=== PATIENT | male | born 1945 | race Caucasian/White ===

== ENCOUNTER → 2023-07-04 06:59 | Outpatient (REF) | payer BC, SELFPAY | LOC: MRI 06:59 | PROVIDERS: ATTENDING PHYSICIAN Psychiatry & Neurology Neurology; FAMILY PHYSICIAN Family Medicine | DX: Z86.73 Personal history of transient ischemic attack (TIA), and cerebral infarction without residual deficits (principal) | CPT/HCPCS: 70544 ==

== ENCOUNTER → 2023-07-14 06:49 | Outpatient (REF) | payer BC, SELFPAY ==
[2023-07-14 10:10] LABS: Glycohemoglobin (HgbA1c) 5.7 % (4.0-5.6)
[2023-07-14 10:33] LABS: ALT (SGPT) 41 U/L (0-50); AST (SGOT) 39 U/L (17-59); Albumin 4.1 g/dl (3.5-5.0); Alkaline Phosphatase 68 U/L (38-126); Blood Urea Nitrogen 18 mg/dl (9-20); Calcium 9.1 mg/dl (8.4-10.2); Carbon Dioxide 27 mmol/L (22-30); Chloride 98 mmol/L (98-107); Glucose 98 mg/dl (70-99); HDL Cholesterol 86 mg/dl; LDL Cholesterol, Calculated 42 mg/dl; Potassium 4.3 mmol/L (3.5-5.1); Sodium 129 mmol/L (135-145); Total Bilirubin 1.2 mg/dl (0.2-1.3); Total Cholesterol 135 mg/dl (50-199); Total Protein 6.8 g/dl (6.3-8.2); Triglyceride 36 mg/dl (10-149); Very Low Density Lipoprotein 7 mg/dl (0-30); eGFR > 60.00
== END ==
LOC: HWLAB 06:49
PROVIDERS: ATTENDING PHYSICIAN Psychiatry & Neurology Neurology; FAMILY PHYSICIAN Family Medicine
DX: Z86.73 Personal history of transient ischemic attack (TIA), and cerebral infarction without residual deficits (principal); R55 Syncope and collapse; I10 Essential (primary) hypertension; R01.1 Cardiac murmur, unspecified; E55.9 Vitamin D deficiency, unspecified
CPT/HCPCS: 36415; 80053; 80061; 83036

== ENCOUNTER → 2023-08-20 10:12 | Outpatient (REF) | payer BC, SELFPAY ==
[2023-08-20 12:08] LABS: Osmolality Urine 402 mOsm/kg (300-900)
[2023-08-20 13:11] LABS: Blood Urea Nitrogen 15 mg/dl (9-20); Calcium 8.9 mg/dl (8.4-10.2); Carbon Dioxide 26 mmol/L (22-30); Chloride 101 mmol/L (98-107); Glucose 102 mg/dl (70-99); Potassium 4.2 mmol/L (3.5-5.1); Sodium 131 mmol/L (135-145); eGFR > 60.00
[2023-08-20 13:19] LABS: Urine Sodium 49 mmol/L (30-90)
[2023-08-20 17:39] LABS: Osmolality Serum 284 mOsm/kg (275-300)
== END ==
LOC: HWLAB 10:12
PROVIDERS: ATTENDING PHYSICIAN Family Medicine
DX: E87.1 Hypo-osmolality and hyponatremia (principal)
CPT/HCPCS: 36415; 80048; 82570; 83930; 83935; 84300; 84443

== ENCOUNTER → 2024-02-16 07:02 | Outpatient (REF) | payer BC, SELFPAY ==
[2024-02-16 09:53] LABS: % Basophils 0.6 % (0-2); % Eosinophils 1.3 % (0-6); % Immature Granulocytes 0.4 % (0-0.5); % Neutrophils 67.7 % (42.2-75.2); Absolute Eosinophils 0.1 10^3/uL (0-0.7); Absolute Monocytes 0.6 10^3/uL (0.1-0.6); Absolute Neutrophils 3.6 10^3/uL (1.4-6.5); Hematocrit 37.3 % (39.0-52.0); Hemoglobin 12.8 g/dL (13.0-18.0); Mean Corp Hgb Conc. 34.3 g/dL (33.0-37.0); Mean Corpuscular Hgb 31.8 pg (27.0-31.0); Mean Corpuscular Volume 92.8 fL (80.0-94.0); Mean Platelet Volume 9.1 fL (7.4-10.4); Nucleated Red Blood Cells % 0 % (-); Platelet Count 225 10^3/uL (130-400); Red Blood Cell Count 4.02 10^6/uL (4.70-6.10); Red Cell Dist. Width 12.7 % (11.5-14.5); White Blood Cell Count 5.3 10^3/uL (4.8-10.8)
[2024-02-16 10:29] LABS: ALT (SGPT) 39 U/L (0-50); AST (SGOT) 37 U/L (17-59); Albumin 4.3 g/dl (3.5-5.0); Alkaline Phosphatase 66 U/L (38-126); Blood Urea Nitrogen 16 mg/dl (9-20); Calcium 9.1 mg/dl (8.4-10.2); Carbon Dioxide 27 mmol/L (22-30); Chloride 98 mmol/L (98-107); Glucose 105 mg/dl (70-99); HDL Cholesterol 99 mg/dl; LDL Cholesterol, Calculated 44 mg/dl; Potassium 4.3 mmol/L (3.5-5.1); Sodium 136 mmol/L (135-145); Total Cholesterol 152 mg/dl (50-199); Total Protein 7.1 g/dl (6.3-8.2); Triglyceride 49 mg/dl (10-149); Very Low Density Lipoprotein 9 mg/dl (0-30); eGFR > 60.00
[2024-02-16 10:43] LABS: Vitamin D, 25-OH*** 54.4 ng/mL (30-80)
== END ==
LOC: HWLAB 07:02
PROVIDERS: ATTENDING PHYSICIAN Family Medicine
DX: I63.9 Cerebral infarction, unspecified (principal); I10 Essential (primary) hypertension; E87.1 Hypo-osmolality and hyponatremia; E55.9 Vitamin D deficiency, unspecified
CPT/HCPCS: 36415; 80053; 80061; 82306; 85025

== ENCOUNTER 2024-04-13 11:13 | Emergency (ER) | payer BC, SELFPAY ==
[2024-04-13 11:30] VITALS: BP 154/98
--- NOTE | 2024-04-13 12:27 | ED.GENMED ---
History of Present Illness
General
Chief Complaint: Fall
Time Seen by Provider: 04/13/24 11:45
History of Present Illness
History of Present Illness:
79-year-old male presents to the emergency department for evaluation of mild headache after a mechanical slip and fall on the ice this morning. Fell backward and struck his head on the ground. Denies loss of consciousness. Denies any vision
changes, vomiting, neck pain, or extremity paresthesias at this time. Does take baby aspirin no anticoagulants
Past History
Past History
ED Past Medical History: Other (OA) and Other (lumbar spinal stenosis)
Social History
Personal:
Living: with family
Employment: Employed
Review of Systems
Review of Systems
Allergies reviewed?: Yes
All Other Systems: ROS reviewed and negative except as documented in HPI and ROS
Phy Exam
Physical Exam
Physical Exam:
GEN: Well appearing, NAD, WDWN
HEENT: Normocephalic and atraumatic, oral mucosa moist, no scleral icterus, no nasal congestion
Cardiac: Regular rate
Lung: No respiratory distress, no tachypnea
MSK: No gross deformity or injuries
Skin: Good color, no pallor or jaundice, no rashes
Neuro: AO x3; CN II-XII grossly intact. BUE strength 5/5 in all yepez, sensation intact and symmetric. BLE strength 5/5 in all yepez, sensation intact and symmetric
Psych: Calm, cooperative
Course
Orders/Labs/Results
Orders:
Orders
04/13/24 11:33
CT Head W/o Iv Contrast Urgent
Comment:
Reason For Exam: fell and hit head on ice. pt is on asa
Vital Signs
Initial and Last Documented VS:
Initial Vital Signs
Temp Pulse Resp BP Pulse Ox
98.0 F 79 16 154/98 98
04/13/24 11:30 04/13/24 11:30 04/13/24 11:30 04/13/24 11:30 04/13/24 11:30
Last Documented Vital Signs
Temp Pulse Resp BP Pulse Ox
98.0 F 69 18 123/63 98
04/13/24 11:30 04/13/24 12:40 04/13/24 12:40 04/13/24 12:40 04/13/24 11:30
MDM/Problems Addressed
MDM/Problems Addressed:
CT of the head is unremarkable, no neurologic deficits, gait is steady, suitable for continued outpatient management
*Critical Care Note
Total Time (30-74mins, 75-104mins- exclusive of procedures): Not Applicable
ED Attending Note
-
Portions of this chart may have been created with voice recognition software.� Occasional wrong word or��sound alike� substitutions may have occurred due to the inherent limitations of voice recognition software.
Discharge Plan
Departure
Patient Disposition: Home (Routine Discharge)
Date of Disposition: 04/13/24
Time of Disposition: 12:35
Patient with high blood pressure during this ER visit?: No
Discharge Problem:
CHI (closed head injury)
Instructions: Head Injury in Adults (DC)
Prescriptions:
No Action
hydrocodone-acetaminophen 1 TABLET tablet
1 tab PO Q4HPRN PRN (Reason: pain) Qty: 15 0RF
diazepam 5 MG tablet
5 mg PO TIDPRN PRN (Reason: spasm) Qty: 20 0RF
Interventions
Interventions:
*Risk Screen - Suicide Last Done: 04/13/24 11:30
*General Assessment Last Done: 04/13/24 12:40
*Neglect/Abuse Screening Last Done: 04/13/24 11:30
*Nursing Disposition Last Done: 04/13/24 12:41
ED-Musculoskeletal Assessment Last Done: 04/13/24 12:39
ED- Neurological Assessment Last Done: 04/13/24 12:39
Discharge Date and Time
Discharge Date/Time: 04/13/24 12:46
Print Language: MALTESE
[2024-04-13 12:40] VITALS: BP 123/63
== END 2024-04-13 12:46 | disposition home or self-care (01) ==
LOC: EMR 11:13
PROVIDERS: EMERGENCY PHYSICIAN Emergency Medicine; FAMILY PHYSICIAN Family Medicine
DX: S09.90XA Unspecified injury of head, initial encounter (principal); W00.0XXA Fall on same level due to ice and snow, initial encounter; Z79.82 Long term (current) use of aspirin
CPT/HCPCS: 99284; 70450

== ENCOUNTER → 2024-06-09 11:05 | Outpatient (REF) | payer BC, SELFPAY ==
[2024-06-09 15:21] LABS: % Basophils 0.5 % (0-2); % Eosinophils 0.5 % (0-6); % Immature Granulocytes 0.4 % (0-0.5); % Lymphocytes 17.3 % (20.5-51.1); % Monocytes 12.5 % (1.7-9.3); % Neutrophils 68.8 % (42.2-75.2); Absolute Monocytes 0.7 10^3/uL (0.1-0.6); Absolute Neutrophils 3.9 10^3/uL (1.4-6.5); Hematocrit 37.7 % (39.0-52.0); Mean Corp Hgb Conc. 34.5 g/dL (33.0-37.0); Mean Corpuscular Hgb 32.9 pg (27.0-31.0); Mean Corpuscular Volume 95.4 fL (80.0-94.0); Mean Platelet Volume 9.6 fL (7.4-10.4); Nucleated Red Blood Cells % 0 % (-); Platelet Count 182 10^3/uL (130-400); Red Blood Cell Count 3.95 10^6/uL (4.70-6.10); Red Cell Dist. Width 12.5 % (11.5-14.5); White Blood Cell Count 5.7 10^3/uL (4.8-10.8)
[2024-06-09 15:22] LABS: Iron 89 ug/dl (49-181)
[2024-06-09 15:32] LABS: Percent Saturation 31 % (20-50); Total Iron Binding Capacity 284 ug/dl (261-462)
== END ==
LOC: HWLAB 11:05
PROVIDERS: ATTENDING PHYSICIAN Family Medicine
DX: D64.9 Anemia, unspecified (principal)
CPT/HCPCS: 36415; 82728; 83540; 83550; 85025

== ENCOUNTER → 2024-06-23 12:30 | Outpatient (REF) | payer BC, SELFPAY ==
[2024-06-23 16:06] LABS: Urine Albumin 3+ (Neg - Trace); Urine Bilirubin Negative (Negative); Urine Character Cloudy (Clear); Urine Color Red; Urine Glucose Negative (Negative); Urine Ketone 1+ (Negative); Urine Leukocyte 2+ (Negative); Urine Nitrite Negative (Negative); Urine Occult Blood 4+ (Negative); Urine Specific Gravity 1.015 (<1.030); Urine Urobilinogen Negative (Neg - 1+); Urine pH 6.5 (5.0-9.0)
[2024-06-23 16:22] LABS: Urine Red Blood Cell >100 /HPF (0-2)
== END ==
LOC: HWLAB 12:30
PROVIDERS: ATTENDING PHYSICIAN Specialist; FAMILY PHYSICIAN Family Medicine
DX: N39.0 Urinary tract infection, site not specified (principal)
CPT/HCPCS: 81003; 81015; 87086

== ENCOUNTER → 2024-07-09 07:03 | Outpatient (REF) | payer BC, SELFPAY | LOC: HWRAD 07:03 | PROVIDERS: ATTENDING PHYSICIAN Specialist; FAMILY PHYSICIAN Family Medicine | DX: R31.0 Gross hematuria (principal) | CPT/HCPCS: 76775 ==

== ENCOUNTER → 2024-07-12 12:57 | Outpatient (REF) | payer BC, SELFPAY ==
[2024-07-12 17:36] LABS: ALT (SGPT) 32 U/L (0-50); AST (SGOT) 31 U/L (17-59); Albumin 4.6 g/dl (3.5-5.0); Alkaline Phosphatase 76 U/L (38-126); Blood Urea Nitrogen 13 mg/dl (9-20); Calcium 9.2 mg/dl (8.4-10.2); Carbon Dioxide 24 mmol/L (22-30); Chloride 98 mmol/L (98-107); Glucose 101 mg/dl (70-99); Potassium 4.3 mmol/L (3.5-5.1); Sodium 131 mmol/L (135-145); Total Bilirubin 1.2 mg/dl (0.2-1.3); Total Protein 7.2 g/dl (6.3-8.2); eGFR > 60.00
== END ==
LOC: HWLAB 12:57
PROVIDERS: ATTENDING PHYSICIAN Specialist; FAMILY PHYSICIAN Family Medicine
DX: D49.4 Neoplasm of unspecified behavior of bladder (principal)
CPT/HCPCS: 36415; 80053

== ENCOUNTER → 2024-07-15 16:41 | Outpatient (REF) | payer BC, SELFPAY | LOC: RAD 16:41 | PROVIDERS: ATTENDING PHYSICIAN Specialist; FAMILY PHYSICIAN Family Medicine | DX: D49.4 Neoplasm of unspecified behavior of bladder (principal); R31.21 Asymptomatic microscopic hematuria | CPT/HCPCS: 74178; Q9967 ==

== ENCOUNTER 2024-07-29 06:16 | Day surgery (SDC) | payer BC, SELFPAY ==
[2024-07-26 13:49] VITALS: BMI 26.9
--- NOTE | 2024-07-27 13:41 | CM ---
CM was updated by PAT nurse that patient will need VN post operatively. CM spoke with patient and he is agreeable to [facility]. CM will send referral via [facility].
PLAN: Home with [facility].
[2024-07-29] VITALS (11 sets, daily range): BP systolic 108–147; BP diastolic 67–89; BMI 26.9
[2024-07-29] MEDS: CYSVIEW KIT 100 MG INTRAVES (07:35)
[2024-07-29] MEDS: NORMOSOL-R/PLASMALYTE-A 1000 IV (07:42)
[2024-07-29 07:54] LABS: Urine Albumin 1+ (Neg - Trace); Urine Bilirubin Negative (Negative); Urine Character Clear (Clear); Urine Color Yellow; Urine Glucose Negative (Negative); Urine Ketone Negative (Negative); Urine Leukocyte Negative (Negative); Urine Nitrite Negative (Negative); Urine Occult Blood 4+ (Negative); Urine Specific Gravity 1.015 (<1.030); Urine Urobilinogen Negative (Neg - 1+)
[2024-07-29 08:47] LABS: Urine Squamous Cell 0-2 /LPF (Few)
[2024-07-29 08:49] LABS: Urine Bacteria Few (Negative); Urine Red Blood Cell 26-30 /HPF (0-2); Urine Urothelial Cell 0-2 /LPF (FEW)
[2024-07-29] MEDS: SYRINGE NON-PUMP 50 ML IRRIG ×2 (09:45→09:46)
[2024-07-29] MEDS: SYRINGE NON-PUMP 50 MG IRRIG ×2 (09:45→09:46)
[2024-07-29] MEDS: Pyridium 200 MG PO (09:55)
[2024-07-29] MEDS: DETROL LA 4 MG PO (09:59)
== END 2024-07-29 12:10 | disposition home or self-care (01) ==
LOC: SDS 06:16
PROVIDERS: ATTENDING PHYSICIAN Specialist; FAMILY PHYSICIAN Family Medicine
DX: C67.9 Malignant neoplasm of bladder, unspecified (principal); R31.29 Other microscopic hematuria
CPT/HCPCS: 52235; C9738; 88305; 88307; 36415; 81003; 81015; 87086; 93005; A9589; J9201

== ENCOUNTER 2024-07-29 14:49 | Emergency (ER) | payer BC, SELFPAY ==
[2024-07-29 14:55] VITALS: BP 140/78
--- NOTE | 2024-07-29 16:17 | ED.GENMED ---
History of Present Illness
General
Chief Complaint: Catheter/Tube Problem
Source: patient and spouse
Exam Limitations: none
Time Seen by Provider: 07/29/24 16:13
Nursing documentation reviewed up to this point in time: agreed with
History of Present Illness
History of Present Illness:
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 Ruth today. The patient had a 24 [place] Howard placed and went home with a leg bag. Patient reports that he was concerned because when he bear down on the
toilet at home, there was a puddle of urine that leaked out around his catheter site. Patient denies fevers and chills. There has been minimal bleeding. Patient reports that he has had to empty his Howard bag twice already. There is urine
currently in the Howard bag. Patient reports that when he relaxes and lays down, the leakage stops. There is no leakage at this time
Past History
Past History
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
ED Past Surgical History: Urological
Social History
Tobacco: Other
Alcohol: Other
Drug: None
Personal:
Living: with family
Employment: Other
Family History
Family History: Other
Review of Systems
Review of Systems
Allergies reviewed?: Yes
Other source history: other (Spouse)
All Other Systems: ROS reviewed and negative except as documented in HPI and ROS
Constitutional: Reports no symptoms
EENT: Reports no symptoms
Respiratory: Reports no symptoms
Cardiac: Reports no symptoms
ABD/GI: Reports no symptoms
: Reports other
Musculoskeletal: Reports no symptoms
Skin: Reports no symptoms
Neurological: Reports no symptoms
Endocrine: Reports no symptoms
Hematologic/Lymphatic: Reports no symptoms
Psychiatric: Reports no symptoms
Phy Exam
Physical Exam
Physical Exam:
Physical Exam
General: no apparent distress, not acutely ill
Neck: supple.
Heart: s1/s2 regular rate and rhythm
Lungs: no acute respiratory distress. clear bilaterally
Abdomen: Soft, nontender, Hoawrd catheter in place. Drainage of clear yellow urine in Howard bag. Small amount of dried blood near urethral orifice
Neuro: alert and oriented. no focal neurological deficits
Skin: no rash
Psychiatric: well kept. interactive and cooperative
Extremities: no edema.
Course
Orders/Labs/Results
Orders:
Orders
07/29/24 17:21
Acetaminophen [Tylenol] 1,000 mg PO NOW STA
Vital Signs
Initial and Last Documented VS:
Initial Vital Signs
Temp Pulse Resp BP Pulse Ox
98.0 F 94 16 140/78 98
07/29/24 14:55 07/29/24 14:55 07/29/24 14:55 07/29/24 14:55 07/29/24 14:55
Last Documented Vital Signs
Temp Pulse Resp BP Pulse Ox
98.0 F 80 16 139/75 98
07/29/24 14:55 07/29/24 17:34 07/29/24 14:55 07/29/24 17:34 07/29/24 17:34
MDM/Problems Addressed
Differential Diagnosis Includes:
Bladder spasm, malfunctioning Howard catheter, clot in catheter causing obstruction
MDM/Problems Addressed:
Patient presents with acute leakage of urine around Howard catheter
Chronic conditions affecting care: HTN
Acute Exacerbation and/or Progression of Chronic Illness:
Patient is acutely hypertensive, likely due to anxiety and mild pain
Acute Exacerbation and/or Progression of Chronic Illness: HTN
*Pulse Oximetry
Patient hypoxic: no
*EKG
Interpreted by ED Provider?: NA
*Health Plan Advisor Interpretation
Rate: Health Plan Advisor- N/A
*Critical Care Note
Total Time (30-74mins, 75-104mins- exclusive of procedures): Not Applicable
Data Reviewed
Review of Other/Old Records Reveals: Operative Reports (Dr. Ruth urological note reviewed from today's procedure when the tumor was resected near patient's left side of bladder)
Source: patient and spouse
Patient Management
Discussion with other providers: Other (Case discussed with Dr. jordan who said that it is very common for postoperative bladder spasms to cause leakage around Howard catheter. Encourage that I start patient on oxybutynin 5 mg twice a day)
ED Attending Note
-
Portions of this chart may have been created with voice recognition software.� Occasional wrong word or��sound alike� substitutions may have occurred due to the inherent limitations of voice recognition software.
Discharge Plan
Departure
Patient Disposition: Home (Routine Discharge)
Date of Disposition: 07/29/24
Time of Disposition: 17:20
Patient with high blood pressure during this ER visit?: Yes
Condition: Good
Covid-19: Not Applicable
Discharge Problem:
leakage around howard catheter
Instructions: How to Care for Your Howard Catheter, Male, BLOOD PRESSURE
Prescriptions:
New
oxybutynin chloride 5 mg tablet
5 mg PO BID 5 Days Qty: 10 0RF
No Action
multivitamin Tablet
1 tab PO DAILY
atorvastatin 20 mg Tablet
20 mg PO DAILY
amlodipine 2.5 mg Tablet
2.5 mg PO DAILY
aspirin 81 mg Tablet,Chewable
81 mg PO DAILY
olmesartan 20 mg Tablet
20 mg PO DAILY
coenzyme Q10 [CoQ-10] 100 mg Capsule
100 mg PO DAILY
vitamin D3-vitamin K2 125-90 mcg Capsule
1 cap PO DAILY
Monclova 3
1 dose PO DAILY
Super Beets
500 mg PO DAILY
iron
10 mg PO DAILY
apple cider vinegar 250 mg Tablet,Chewable
500 mg PO DAILY
Referrals:
Pat Saez, [Family Provider] -
Activity Restrictions/Additional Instructions:
Return for any fever, chills or vomiting. Please follow-up with urology this Friday morning as scheduled.
Urology feels that the catheter leakage is due to bladder spasms, which are normal after the procedure that you had today.
Interventions
Interventions:
*Risk Screen - Suicide Last Done: 07/29/24 14:55
*Neglect/Abuse Screening Last Done: 07/29/24 14:55
ED-Male Genitourinary Assessment Last Done: 07/29/24 15:37
Discharge Date and Time
Print Language: SWEDISH
[2024-07-29 17:34] VITALS: BP 139/75
[2024-07-29] MEDS: TYLENOL 1000 MG PO (17:35)
== END 2024-07-29 17:53 | disposition home or self-care (01) ==
LOC: EMR 14:49
PROVIDERS: EMERGENCY PHYSICIAN Emergency Medicine; FAMILY PHYSICIAN Family Medicine
DX: T83.038A Leakage of other urinary catheter, initial encounter (principal); Y92.9 Unspecified place or not applicable; M19.90 Unspecified osteoarthritis, unspecified site; M48.061 Spinal stenosis, lumbar region without neurogenic claudication; I10 Essential (primary) hypertension
CPT/HCPCS: 99282

== ENCOUNTER → 2024-10-20 10:39 | Outpatient (REF) | payer BC, SELFPAY ==
[2024-10-20 11:37] LABS: Urine Character Cloudy (Clear)
[2024-10-20 12:05] LABS: Urine White Cell >100 /HPF (0-5)
== END ==
LOC: REG 10:39
PROVIDERS: ATTENDING PHYSICIAN Specialist; FAMILY PHYSICIAN Family Medicine
DX: N39.0 Urinary tract infection, site not specified (principal)
CPT/HCPCS: 81003; 81015; 87086

== ENCOUNTER → 2024-11-15 07:38 | Outpatient (REF) | payer BC, SELFPAY ==
[2024-11-15 10:25] LABS: Hematocrit 38.2 % (39.0-52.0); Hemoglobin 13.0 g/dL (13.0-18.0); Mean Corp Hgb Conc. 34.0 g/dL (33.0-37.0); Mean Corpuscular Volume 94.6 fL (80.0-94.0); Nucleated Red Blood Cells % 0 % (-); Platelet Count 197 10^3/uL (130-400); Red Cell Dist. Width 12.6 % (11.5-14.5)
[2024-11-15 10:47] LABS: ALT (SGPT) 27 U/L (0-50); AST (SGOT) 27 U/L (17-59); Albumin 4.4 g/dl (3.5-5.0); Alkaline Phosphatase 66 U/L (38-126); Blood Urea Nitrogen 16 mg/dl (9-20); Calcium 8.9 mg/dl (8.4-10.2); Carbon Dioxide 26 mmol/L (22-30); Chloride 100 mmol/L (98-107); Glucose 100 mg/dl (70-99); HDL Cholesterol 83 mg/dl; Iron 131 ug/dl (49-181); LDL Cholesterol, Calculated 73 mg/dl; Potassium 4.5 mmol/L (3.5-5.1); Sodium 131 mmol/L (135-145); Total Protein 7.0 g/dl (6.3-8.2); Very Low Density Lipoprotein 10 mg/dl (0-30); eGFR > 60.00
[2024-11-15 10:57] LABS: Total Iron Binding Capacity 304 ug/dl (261-462)
[2024-11-15 10:59] LABS: Vitamin D, 25-OH*** 49.5 ng/mL (30-80)
== END ==
LOC: HWLAB 07:38
PROVIDERS: ATTENDING PHYSICIAN Family Medicine
DX: D64.9 Anemia, unspecified (principal); E87.1 Hypo-osmolality and hyponatremia; I63.9 Cerebral infarction, unspecified; E55.9 Vitamin D deficiency, unspecified
CPT/HCPCS: 36415; 80053; 80061; 82306; 83540; 83550; 85025